=== PATIENT | male | born 1960 | race Caucasian/White ===

== ENCOUNTER → 2016-02-25 | Outpatient (CLI) | payer BC ==
--- NOTE | 2016-02-25 13:01 | DX ---
Chest, PA and Lateral Views - February 25, 2016, at 12:05 p.m. Clinical History: 56-year-old male with a productive cough for 1 1/2 months, finishing antibiotics o n February 11, and now his symptoms are returning. Evaluate for a left lower lobe Mycoplasma pneumoni a. ICD-10 Diagnostic Code: J15.7. Comparison Study: Chest, dated May 14, 2015. Findings: The cardiac size is at the upper limits of normal. There is central perihilar bronchial wa ll thickening, consistent with a perihilar bronchitis. There is some left basilar subsegmental atelec tasis versus a minimal infiltrate. There is no pleural effusion, peripheral interstitial edema, or pn eumothorax. The trachea is midline. The osseous structures are notable for some mild [id number] tho racic ventral concavities, which are stable. Impression: Perihilar bronchitis with left basilar subsegmental atelectasis versus a minimal infiltr ate.
== END ==
LOC: BRMIMAGING 12:03
PROVIDERS: ATTEND Physician Assistant
DX: J40 Bronchitis, not specified as acute or chronic (principal); R05 Cough; R91.8 Other nonspecific abnormal finding of lung field
CPT/HCPCS: 71020-PO